=== PATIENT | male | born 1985 | race Caucasian/White ===

== ENCOUNTER 2020-11-13 17:29 | Emergency (ER) | payer OTHER ==
[2020-11-13] MEDS ORDERED: ZOFRAN ODT 4 MG4 MG SL (21:42)
[2020-11-13] MEDS ORDERED: VIRTUSSIN AC 1118 ML PO (21:54)
== END 2020-11-13 21:59 | disposition home or self-care (01) ==
LOC: ER1 17:29
DX: U07.1 COVID-19 (principal); Z88.0 Allergy status to penicillin
CPT/HCPCS: 0240U; 71045; 87081; 87880; 99285